=== PATIENT | female | born 1940 | race Caucasian/White ===

== ENCOUNTER → 2022-11-29 | Outpatient (CLI) | payer MEDICARE, BC ==
[~2022-11-29] MED LIST: ASPI325 PO; Amiodarone HCl200 MG PO; Bentyl20 MG; FURO20 PO; GEMF600 PO; LEVSOD125 PO; LEVSOD50 PO; LOSA50 PO; LOSHYD100 PO; NAPR500 PO; OXYACE5T PO; Omeprazole20 M1; RABE20 PO
[2022-11-30 23:09] LABS: HEMOGLOBIN A1C 5.6 % (4.8-5.6)
== END | disposition home or self-care (01) ==
LOC: LAB SHORT 12:55 → LAB 12:55
PROVIDERS: Physician Assistant
DX: E03.9 Hypothyroidism, unspecified (principal); R73.09 Other abnormal glucose; Z83.3 Family history of diabetes mellitus
CPT/HCPCS: 83036; 84443

== ENCOUNTER 2023-03-07 09:23 | Day surgery (SDC) | payer MEDICARE, BC ==
[2023-03-07] VITALS (12 sets, daily range): BP systolic 109–186; BP diastolic 49–84
[~2023-03-07] VITALS: Ht 157 cm; Wt 97.3 kg
[~2023-03-07 09:23] MED LIST changes: +AMLO5 PO; +Bentyl20 MG PO; +LOSARTAN-HCTZ1 EACH PO; +MELO7.5 PO
--- NOTE | 2023-03-07 12:05 | NUR ---
Ambulatory in Day Surgery. Patient confirms NPO status and agrees with scheduled surgery. Surgical site prepped with 2% Chlorhexidine cloth wipe. Patient reports completing Chlorhexadine shower X2 prior to admission to hospital. History, Chart, Medications and Allergies reviewed before start of procedure. Pre-Op teaching done. Pt verbalizes understanding.
--- NOTE | 2023-03-07 15:39 | NUR ---
PATIENT ARRIVED FROM PACU TODAY AT 1530. POD 0 RIGHT TOTAL KNEE PATIENT IS A&OX4. VS ARE WNL AND IS ON RA. PATIENT HAD A SPINAL DURING THE PROCEDURE AND IS ABLE TO WIGGLE HER TOES BUT STATES "I STILL DON'T HAVE MUCH FEELING FROM THE THIGHS DOWN AND NO PAIN". HER RIGHT KNEE HAS AN AQUACEL ON THAT IS C/D/I WITH POLAR PACK IN PLACE. PEDAL PULSES ARE STRONG AND WARM TO TOUCH. SHE IS TOLERATING SMALL AMOUNTS OF PO INTAKE. SHE IS LAYING IN BED WITH CALL LIGHT IN REACH AND AT BEDSIDE.
--- NOTE | 2023-03-07 17:41 | NUR ---
SHIFT SUMMARY: POD 0 RIGHT TOTAL KNEE PATIENT IS A&OX4. VS ARE WNL AND IS ON RA. PAIN IS MANAGED WITH PO TYLENOL, OXY, AND IV TORADOL AT THIS TIME. HER RIGHT KNEE HAS AN AQUACEL THAT IS C/D/I WITH POLAR PACK IN PLACE. SHE REPORTS NAUSEA AND HAD 1 EMESIS BUT NOW STATES "I FEEL MUCH BETTER AFTER THROWING UP AND DON'T FEEL NAUSEOUS". SHE WAS ALSO GIVEN IV ZOFRAN AND REGLAN. SHE DENIES NUMBNESS OR TINGLING IN ALL EXTREMITIES. SHE IS TOLERATING PO INTAKE. SHE IS LAYING IN BED WITH CALL LIGHT IN REACH.
--- NOTE | 2023-03-08 04:08 | NUR ---
SHIFT SUMMARY POD 1 R TKA. NO ACUTE CHANGES OVERNIGHT. VSS. AQUACEL/JONAS WRAP C/D/I, POLAR PACK IN PLACE. PT TOLERATING ORALS, MINIMAL NAUSEA OVERNIGHT- MEDICATED PER EMAR. PT USES FWW TO AMBULATE TO BATHROOM. ANTICIPATED DISCHARGE LATER TODAY. CALL LIGHT WITHIN REACH, BED IN LOWEST POSITION, WILL REPORT TO DAY RN.
[2023-03-08 04:10] VITALS: BP 128/60
[2023-03-08 04:36] LABS: BASOPHILS ABSOLUTE AUTO 0.03 K/mm3 (0.00-0.23); BASOPHILS PERCENT AUTO 0 % (0-2); EOSINOPHILS ABSOLUTE AUTO 0.11 K/mm3 (0.00-0.68); EOSINOPHILS PERCENT AUTO 1 % (0-6); Hematocrit 37.6 % (33.0-51.0); Hemoglobin 12.3 g/dL (11.5-16.0); IMMATURE GRAN ABSOLUTE AUTO 0.05 K/mm3 (0.00-0.10); IMMATURE GRAN PERCENT AUTO 0 % (0-1); LYMPHOCYTES PERCENT AUTO 18 % (21-46); MONOCYTES ABSOLUTE AUTO 0.73 K/mm3 (0.16-1.47); MONOCYTES PERCENT AUTO 6 % (4-13); Mean Corpuscular HGB 30.1 pg (26.0-34.0); Mean Corpuscular HGB Conc 32.7 g/dL (31.5-36.5); Mean Corpuscular Volume 92 fL (80-100); Mean Platelet Volume 10.5 fL (9.1-12.4); NEUTROPHILS ABSOLUTE AUTO 8.46 K/mm3 (1.96-9.15); NEUTROPHILS PERCENT AUTO 74 % (41-73); Platelet Count 264 K/mm3 (150-400); RDW Coefficient Variation 13.2 % (11.7-14.2); RDW Standard Deviation 44.8 fL (35.1-46.3); Red Blood Cell Count 4.09 M/mm3 (3.80-5.20); White Blood Cell Count 11.38 K/mm3 (4.00-11.30)
[2023-03-08 05:03] LABS: Bun/Creatinine Ratio 17.1 (12.0-20.0); Calcium, Blood 8.3 mg/dL (8.5-10.1); Creatinine, Blood 0.99 mg/dL (0.40-1.00); Potassium, Blood 3.3 mmol/L (3.5-5.5)
[2023-03-08 06:52] VITALS: BP 107/52
[2023-03-08 07:37] VITALS: BP 122/56
[2023-03-08] MEDS ORDERED: Percocet 5-3251 EACH PO (09:07)
[2023-03-08] MEDS ORDERED: ASPI81CH PO (09:08)
[2023-03-08] MEDS ORDERED: ONDA4 PO (09:09)
--- NOTE | 2023-03-08 10:56 | NUR ---
DISCHARGE NOTE: PATIENT AND PATIENTS WERE EDUCATED ON DISCHARGE INSTRUCTIONS. BOTH VERBALIZED UNDERSTANDING OF INSTRUCTIONS AND HAD NO FURTHER QUESTIONS AT THIS TIME. IV WAS TAKEN OUT AND WNL. HARD PERSCRIPTIONS WERE GIVEN TO . PAIN IS MANAGED WITH PO PAIN MEDS. HER RIGHT KNEE HAS AN AQUACEL AND JONAS WRAP THAT IS C/D/I. DENIES NUMBNESS OR TINGLING. SHE IS TOLERATING PO INTAKE AND IS VOIDING. SHE IS A SBA WITH FWW AND GAIT BELT. PATIENT IS DRESSED AND HAS PERSONAL ITEMS IN THE ROOM GATHERED. SHE WAS WHEELCHAIRED OUT TO HER HUSBANDS CAR TO BE TAKEN HOME.
[2023-03-08 11:07] VITALS: BP 150/86
== END 2023-03-08 10:45 | disposition home or self-care (01) ==
LOC: ORSCMMR 09:23 → ORD 11:00 → ORSCMMR 11:00 → ORD 12:00 → SURS 16:15 → ORSCMMR 03-08 10:45
PROVIDERS: Orthopaedic Surgery
PROC: 0SRC0JA Replacement of Right Knee Joint with Synthetic Substitute, Uncemented, Open Approach (ICD-10-PCS; principal; 2023-03-07 12:00)
DX: M17.11 Unilateral primary osteoarthritis, right knee (principal); I10 Essential (primary) hypertension; Z68.39 Body mass index [BMI] 39.0-39.9, adult; Z79.899 Other long term (current) drug therapy; E03.9 Hypothyroidism, unspecified; Z87.891 Personal history of nicotine dependence
CPT/HCPCS: 36415; 73560-RT; 80048; 82947; 85025; 97110; 97116; 97161; 97530; A9270; C1776; J0171; J0690; J0735; J0780; J1885; J2405; J2704; J2765; J2795; J3010; J7120

== ENCOUNTER 2023-06-22 10:04 | Day surgery (SDC) | payer MEDICARE, BC ==
[~2023-06-22] VITALS: Ht 160 cm; Wt 93.1 kg
[~2023-06-22 10:04] MED LIST changes: +ASPI81CH PO; +ONDA4 PO; +Percocet 5-3251 EACH PO
--- NOTE | 2023-06-22 10:41 | NUR ---
06/22/23 1041 Rosalva Del Rio RIGHT EYE IDENTIFIED CORRECT EYE PER PT AND CONSENT FORM. TETRACAINE PLACED IN RIGHT EYE AT 1022. PLEDGET PLACED IN RIGHT EYE AT 1025, EYE COVERED WITH GAUZE AND TAPE. PT TOLERATED WELL. , FIDENCIO, AT BEDSIDE, AND CALL LIGHT WITHIN REACH.
[2023-06-22 11:31] VITALS: BP 174/81
== END 2023-06-22 11:45 | disposition home or self-care (01) ==
LOC: ORSCSDS 10:04
PROVIDERS: Ophthalmology
PROC: 08RJ3JZ Replacement of Right Lens with Synthetic Substitute, Percutaneous Approach (ICD-10-PCS; principal; 2023-06-22 11:30)
DX: H25.13 Age-related nuclear cataract, bilateral (principal); I10 Essential (primary) hypertension; E07.9 Disorder of thyroid, unspecified; E66.9 Obesity, unspecified; Z68.36 Body mass index [BMI] 36.0-36.9, adult; Z79.899 Other long term (current) drug therapy
CPT/HCPCS: J2250; J3010; J3301; J7040; V2632

== ENCOUNTER → 2024-05-28 | Outpatient (CLI) | payer MEDICARE ==
[~2024-05-28] MED LIST changes: +MOBIC7.5 MG PO
== END ==
LOC: LAB SHORT 15:55 → LAB 15:55
DX: N39.0 Urinary tract infection, site not specified (principal)
CPT/HCPCS: 87077; 87086; 87186